=== PATIENT | male | born 1945 | race Caucasian/White ===

== ENCOUNTER 2024-07-23 13:13 | Inpatient (IN) | payer MEDICARE, OTHER ==
[2024-07-23] MEDS ORDERED: Polyethylene Glycol 3350 Powder 17 GM Packet PO PRN (16:40)
[2024-07-23] MEDS ORDERED: Non-Formulary Medication 1 Each (Insulin Aspart [Novolog] 100 UNIT/ML Vial) SUBCUT SCH (16:43)
[2024-07-23] MEDS: Acetaminophen 500 MG Tab PO PRN (17:41)
[2024-07-23] MEDS: Insulin Lispro 100 Units/ML 3 ML Vial SUBCUT SCH (17:43)
[2024-07-23] MEDS: Insulin Glarg,Human.Rec.Analog 100 Unit/ML 10 ML Vial SUBCUT SCH (21:37)
[2024-07-23] MEDS: Heparin Sodium 100 Units/ML 3 ML Syringe IVPUSH SCH (21:40)
[2024-07-23] MEDS: Cefepime 2 GM Vial IV SCH (21:45)
[2024-07-23] MEDS: metFORMIN 500 MG Tab PO SCH (22:23)
[2024-07-24 07:22] LABS: INR 1.3 (0.9-1.1); PROTHROMBIN TIME 13.5 SEC (9.6-12.0)
[2024-07-24] MEDS: Aspirin 81 MG Tab.EC PO SCH (08:26)
[2024-07-24] MEDS: Cholecalciferol (Vitamin D3) 25 MCG Tab PO SCH (08:26)
[2024-07-24] MEDS: Lisinopril 20 MG Tab PO SCH (08:27)
[2024-07-24] MEDS: Ascorbic Acid 500 MG Tab PO SCH (08:28)
[2024-07-24] MEDS: Zinc Sulfate 220 MG Cap PO SCH (08:29)
[2024-07-24] MEDS: Cyanocobalamin (Vitamin B12) 250 MCG Tab PO SCH (08:29)
[2024-07-24] MEDS: amLODIPine 10 MG Tab PO SCH (08:29)
[2024-07-24] MEDS: Metoprolol Succinate 50 MG Tab.ER PO SCH (08:30)
[2024-07-24] MEDS: Ferrous Sulfate 325 MG Tab PO SCH (08:39)
[2024-07-24] MEDS: Sodium Chloride 0.9% 10 ML Syringe IV SCH (08:52)
[2024-07-24] MEDS ORDERED: Non-Formulary Medication 1 Each (Benazepril [Lotensin] 20 MG Tablet) PO SCH (09:00)
[2024-07-24] MEDS: Warfarin 2.5 MG, Warfarin 5 MG PO SCH (11:57)
[2024-07-24] MEDS: FLU (Fluad Triv) TS24-25 (65UP)/MF59C/PF 45 MCG/0.5 ML Syringe IM ONE (11:59)
[2024-07-24] MEDS ORDERED: Non-Formulary Medication 1 Each (Warfarin 7.5 MG Tablet) PO SCH (16:40)
[2024-07-24] MEDS: Acetaminophen 500 MG Tab PO SCH (20:03)
[2024-07-25] MEDS: Warfarin 5 MG Tab PO SCH (09:15)
[2024-07-25] MEDS ORDERED: oxyCODONE 5 MG Tab PO PRN (11:04)
[2024-07-25] MEDS ORDERED: Warfarin 5 MG Tab PO SCH (16:45)
[2024-07-25] MEDS: Insulin Glarg,Human.Rec.Analog 100 Unit/ML 10 ML Vial SUBCUT ONE (21:12)
[2024-07-26] MEDS: oxyCODONE 5 MG Tab PO PRN (07:42)
[2024-07-26] MEDS: Sennosides/Docusate Sodium 50-8.6 MG Tab PO PRN (07:43)
[2024-07-26] MEDS: Insulin Glarg,Human.Rec.Analog 100 Unit/ML 10 ML Vial SUBCUT SCH (08:34)
[2024-07-28 07:15] LABS: CREATININE 1.4 mg/dL (0.70-1.30); EST CRCL DRUG DOSING (CG) 45.63 mL/min
[2024-07-28 07:19] LABS: BASOPHILS ABSOLUTE AUTO 0.1 x10^3/uL (0.0-0.2); BASOPHILS PERCENT AUTO 0.5 % (0.2-1.2); EOSINOPHILS PERCENT AUTO 9.5 % (0.0-4.0); HEMATOCRIT 35.1 % (40.0-52.0); HEMOGLOBIN 11.5 g/dL (14.0-18.0); IMMATURE GRAN ABSOLUTE AUTO 0.05 x10^3/uL (0.00-0.07); LYMPHOCYTES PERCENT AUTO 17.8 % (25.0-50.0); MEAN CORPUSCULAR HEMOGLOBIN 25.5 pg (26.0-32.0); MEAN CORPUSCULAR HGB CONC 32.8 g/dL (32.0-36.0); MEAN CORPUSCULAR VOLUME 77.8 fL (78.0-93.0); MONOCYTES ABSOLUTE AUTO 1.1 x10^3/uL (0.0-0.8); MONOCYTES PERCENT AUTO 9.7 % (2.0-11.0); NEUTROPHILS ABSOLUTE AUTO 6.8 x10^3/uL (1.8-7.7); PLATELET COUNT,PLT 254 x10^3/uL (130-400); RED BLOOD CELL COUNT 4.51 x10^6/uL (4.5-6.0)
[2024-07-28 07:27] LABS: INR 2.3 (0.9-1.1); PROTHROMBIN TIME 23.6 SEC (9.6-12.0)
[2024-07-31] MEDS: traMADol 50 MG Tab PO PRN ×2 (03:05→22:31)
[2024-07-31 10:42] LABS: INR 2.1 (0.9-1.1); PROTHROMBIN TIME 21.9 SEC (9.6-12.0)
[2024-07-31] MEDS: Acetaminophen 500 MG Tab PO SCH (18:11)
[2024-08-01] MEDS ORDERED: Insulin Glarg,Human.Rec.Analog 100 Unit/ML 10 ML Vial SUBCUT SCH (09:00)
[2024-08-01] MEDS: Insulin Glarg,Human.Rec.Analog 100 Unit/ML 10 ML Vial SUBCUT SCH (09:14)
[2024-08-01] MEDS: Insulin Lispro 100 Units/ML 3 ML Vial SUBCUT SCH ×2 (10:39→17:37)
[2024-08-01] MEDS ORDERED: Insulin Lispro 100 Units/ML 3 ML Vial SUBCUT SCH (12:00)
[2024-08-02] MEDS: Insulin Regular, Human 100 Units/ML 10 ML Vial SUBCUT SCH (06:27)
[2024-08-03] MEDS ORDERED: oxyCODONE 5 MG Tab PO PRN (22:30)
[2024-08-04 07:45] LABS: CREATININE 1.6 mg/dL (0.70-1.30); EST CRCL DRUG DOSING (CG) 39.92 mL/min
[2024-08-04 07:46] LABS: INR 2.4 (0.9-1.1); PROTHROMBIN TIME 25.1 SEC (9.6-12.0)
[2024-08-04 07:47] LABS: BASOPHILS ABSOLUTE AUTO 0.1 x10^3/uL (0.0-0.2); BASOPHILS PERCENT AUTO 0.5 % (0.2-1.2); EOSINOPHILS PERCENT AUTO 9.5 % (0.0-4.0); HEMATOCRIT 34.1 % (40.0-52.0); HEMOGLOBIN 11.3 g/dL (14.0-18.0); IMMATURE GRAN ABSOLUTE AUTO 0.07 x10^3/uL (0.00-0.07); LYMPHOCYTES ABSOLUTE AUTO 1.6 x10^3/uL (1.0-4.8); LYMPHOCYTES PERCENT AUTO 14.7 % (25.0-50.0); MEAN CORPUSCULAR HEMOGLOBIN 25.6 pg (26.0-32.0); MEAN CORPUSCULAR HGB CONC 33.1 g/dL (32.0-36.0); MEAN CORPUSCULAR VOLUME 77.3 fL (78.0-93.0); MONOCYTES ABSOLUTE AUTO 0.9 x10^3/uL (0.0-0.8); NEUTROPHILS ABSOLUTE AUTO 7.3 x10^3/uL (1.8-7.7); NEUTROPHILS PERCENT AUTO 66.7 % (50.0-80.0); PLATELET COUNT,PLT 266 x10^3/uL (130-400); RED BLOOD CELL COUNT 4.41 x10^6/uL (4.5-6.0)
[2024-08-04] MEDS: traMADol 50 MG Tab PO SCH (09:43)
[2024-08-04] MEDS: Polyethylene Glycol 3350 Powder 17 GM Packet PO SCH (17:23)
[2024-08-04] MEDS: DEXAMETHASONE 2 MG PO SCH (18:26)
[2024-08-04] MEDS: Sennosides/Docusate Sodium 50-8.6 MG Tab PO SCH (21:48)
[2024-08-05] MEDS: oxyCODONE 5 MG Tab PO PRN (08:36)
[2024-08-05] MEDS: Meropenem 1 GM in Sodium Chloride 0.9% 100 ML IV SCH (20:24)
[2024-08-07] MEDS: Insulin Regular, Human 100 Units/ML 10 ML Vial SUBCUT SCH (07:00)
[2024-08-07] MEDS: oxyCODONE 5 MG Tab PO SCH (20:47)
[2024-08-09] MEDS: Ondansetron 4 MG Tab.DIS PO PRN (08:22)
[2024-08-09 08:39] LABS: ANION GAP 12.7 mmol/L (5-15); CREATININE 1.2 mg/dL (0.70-1.30); EST CRCL DRUG DOSING (CG) 53.23 mL/min; POTASSIUM,K 4.7 mmol/L (3.5-5.1)
[2024-08-10] MEDS: Prochlorperazine 5 MG Tab PO PRN (15:33)
[2024-08-11 07:20] LABS: BASOPHILS PERCENT AUTO 0.1 % (0.2-1.2); EOSINOPHILS ABSOLUTE AUTO 0.9 x10^3/uL (0.0-0.5); EOSINOPHILS PERCENT AUTO 6.2 % (0.0-4.0); HEMATOCRIT 34.4 % (40.0-52.0); HEMOGLOBIN 11.3 g/dL (14.0-18.0); IMMATURE GRAN ABSOLUTE AUTO 0.16 x10^3/uL (0.00-0.07); LYMPHOCYTES ABSOLUTE AUTO 0.8 x10^3/uL (1.0-4.8); LYMPHOCYTES PERCENT AUTO 5.7 % (25.0-50.0); MEAN CORPUSCULAR HEMOGLOBIN 25.3 pg (26.0-32.0); MEAN CORPUSCULAR HGB CONC 32.8 g/dL (32.0-36.0); MEAN CORPUSCULAR VOLUME 77.1 fL (78.0-93.0); MONOCYTES ABSOLUTE AUTO 1.1 x10^3/uL (0.0-0.8); MONOCYTES PERCENT AUTO 8.2 % (2.0-11.0); NEUTROPHILS ABSOLUTE AUTO 10.9 x10^3/uL (1.8-7.7); NEUTROPHILS PERCENT AUTO 78.7 % (50.0-80.0); PLATELET COUNT,PLT 302 x10^3/uL (130-400); RED BLOOD CELL COUNT 4.46 x10^6/uL (4.5-6.0); WHITE BLOOD CELL COUNT,WBC 13.9 x10^3/uL (4.0-10.0)
[2024-08-11 07:30] LABS: INR 3.5 (0.9-1.1); PROTHROMBIN TIME 35.2 SEC (9.6-12.0)
[2024-08-11 07:36] LABS: ANION GAP 10.1 mmol/L (5-15); CALCIUM 9.8 mg/dL (8.5-10.1); CREATININE 1.2 mg/dL (0.70-1.30); EST CRCL DRUG DOSING (CG) 53.23 mL/min; POTASSIUM,K 5.1 mmol/L (3.5-5.1)
[2024-08-11] MEDS: oxyCODONE ER 10 MG TAB.ER PO SCH (22:09)
[2024-08-11] MEDS: oxyCODONE ER 20 MG TAB.ER PO SCH (22:16)
[2024-08-12] MEDS ORDERED: Warfarin 2.5 MG, Warfarin 5 MG PO ONE (09:00)
[2024-08-12] MEDS: Warfarin 5 MG Tab PO SCH (12:39)
[2024-08-12] MEDS: oxyCODONE ER 10 MG TAB.ER PO SCH (19:59)
[2024-08-13 07:04] LABS: CALCIUM 9.7 mg/dL (8.5-10.1); CREATININE 1.3 mg/dL (0.70-1.30); EST CRCL DRUG DOSING (CG) 49.13 mL/min; POTASSIUM,K 4.8 mmol/L (3.5-5.1)
[2024-08-13 07:05] LABS: ANION GAP 11.8 mmol/L (5-15); INR 3.2 (0.9-1.1); PROTHROMBIN TIME 32.6 SEC (9.6-12.0)
[2024-08-13] MEDS: oxyCODONE ER 20 MG TAB.ER PO SCH (19:44)
[2024-08-14] MEDS: Warfarin 5 MG Tab PO SCH (10:04)
[2024-08-14] MEDS: Morphine 2 MG/ML SYRINGE IVPUSH PRN (15:56)
[2024-08-15] MEDS ORDERED: Warfarin 2.5 MG, Warfarin 5 MG PO SCH (09:00)
[2024-08-18 07:03] LABS: BASOPHILS ABSOLUTE AUTO 0.1 x10^3/uL (0.0-0.2); BASOPHILS PERCENT AUTO 0.6 % (0.2-1.2); EOSINOPHILS ABSOLUTE AUTO 0.6 x10^3/uL (0.0-0.5); HEMOGLOBIN 11.5 g/dL (14.0-18.0); IMMATURE GRAN ABSOLUTE AUTO 0.06 x10^3/uL (0.00-0.07); LYMPHOCYTES ABSOLUTE AUTO 0.4 x10^3/uL (1.0-4.8); LYMPHOCYTES PERCENT AUTO 4.4 % (25.0-50.0); MEAN CORPUSCULAR HEMOGLOBIN 25.2 pg (26.0-32.0); MEAN CORPUSCULAR HGB CONC 31.9 g/dL (32.0-36.0); MEAN CORPUSCULAR VOLUME 78.8 fL (78.0-93.0); MONOCYTES PERCENT AUTO 10.3 % (2.0-11.0); NEUTROPHILS ABSOLUTE AUTO 7.9 x10^3/uL (1.8-7.7); NEUTROPHILS PERCENT AUTO 78.1 % (50.0-80.0); PLATELET COUNT,PLT 233 x10^3/uL (130-400); RED BLOOD CELL COUNT 4.57 x10^6/uL (4.5-6.0); WHITE BLOOD CELL COUNT,WBC 10.1 x10^3/uL (4.0-10.0)
[2024-08-18 07:10] LABS: INR 2.8 (0.9-1.1); PROTHROMBIN TIME 28.9 SEC (9.6-12.0)
[2024-08-18 07:16] LABS: CALCIUM 10.3 mg/dL (8.5-10.1); CREATININE 1.4 mg/dL (0.70-1.30); EST CRCL DRUG DOSING (CG) 45.63 mL/min; POTASSIUM,K 4.8 mmol/L (3.5-5.1)
[2024-08-18 07:17] LABS: ANION GAP 10.8 mmol/L (5-15)
[2024-08-20] MEDS: Acetaminophen Soln 160 MG/5 ML UD Cup PO SCH (18:38)
[2024-08-22] MEDS: Triamcinolone Acetonide 0.1% Crm 454 GM Jar TOP SCH (21:41)
[2024-08-24] MEDS: Acetaminophen Soln 160 MG/5 ML UD Cup PO PRN (18:02)
[2024-08-25 07:22] LABS: CALCIUM 9.3 mg/dL (8.5-10.1); CREATININE 1.4 mg/dL (0.70-1.30); EST CRCL DRUG DOSING (CG) 45.63 mL/min; POTASSIUM,K 3.9 mmol/L (3.5-5.1)
[2024-08-25 07:23] LABS: ANION GAP 8.9 mmol/L (5-15)
[2024-08-25 07:30] LABS: BASOPHILS PERCENT AUTO 0.4 % (0.2-1.2); EOSINOPHILS PERCENT AUTO 11.6 % (0.0-4.0); HEMATOCRIT 32.7 % (40.0-52.0); HEMOGLOBIN 10.6 g/dL (14.0-18.0); IMMATURE GRAN ABSOLUTE AUTO 0.04 x10^3/uL (0.00-0.07); LYMPHOCYTES ABSOLUTE AUTO 1.3 x10^3/uL (1.0-4.8); LYMPHOCYTES PERCENT AUTO 14.8 % (25.0-50.0); MEAN CORPUSCULAR HEMOGLOBIN 25.1 pg (26.0-32.0); MEAN CORPUSCULAR HGB CONC 32.4 g/dL (32.0-36.0); MEAN CORPUSCULAR VOLUME 77.3 fL (78.0-93.0); MONOCYTES ABSOLUTE AUTO 0.9 x10^3/uL (0.0-0.8); NEUTROPHILS ABSOLUTE AUTO 5.3 x10^3/uL (1.8-7.7); NEUTROPHILS PERCENT AUTO 62.7 % (50.0-80.0); PLATELET COUNT,PLT 279 x10^3/uL (130-400); RED BLOOD CELL COUNT 4.23 x10^6/uL (4.5-6.0); WHITE BLOOD CELL COUNT,WBC 8.5 x10^3/uL (4.0-10.0)
[2024-08-25] MEDS: Triamcinolone Acetonide 0.1% Crm 15 GM Tube TOP SCH (20:51)
[2024-08-26] MEDS ORDERED: Levalbuterol HCl 1.25 MG/3 ML Neb INH PRN (16:37)
[2024-08-28] MEDS: diphenhydrAMINE 25 MG Cap PO PRN (03:14)
[2024-08-28] MEDS: ALPRAZolam 0.25 MG Tab PO PRN (07:45)
[2024-08-28] MEDS ORDERED: Meropenem 1 GM in Sodium Chloride 0.9% 100 ML IV SCH (14:49)
[2024-08-28] MEDS: Meropenem 1 GM in Sodium Chloride 0.9% 100 ML IV SCH (20:39)
[2024-08-29] MEDS ORDERED: [UNRECOGNIZED DRUG - OTHER] PO PRN (11:22)
[2024-08-29] MEDS ORDERED: ACETAMINOPHEN PO PRN (11:22)
[2024-08-29] MEDS: hydrOXYzine HCl 25 MG Tab PO PRN (13:03)
[2024-08-29] MEDS: [UNRECOGNIZED DRUG - OTHER] TOP PRN (13:03)
[2024-08-29] MEDS: Camphor/Menthol 0.5-0.5% Lotion 222 ML Bottle TOP PRN (16:08)
[2024-08-29 18:48] LABS: BASOPHILS PERCENT AUTO 0.4 % (0.2-1.2); EOSINOPHILS PERCENT AUTO 12.2 % (0.0-4.0); HEMATOCRIT 29.2 % (40.0-52.0); HEMOGLOBIN 9.3 g/dL (14.0-18.0); IMMATURE GRAN ABSOLUTE AUTO 0.04 x10^3/uL (0.00-0.07); LYMPHOCYTES ABSOLUTE AUTO 1.4 x10^3/uL (1.0-4.8); LYMPHOCYTES PERCENT AUTO 17.6 % (25.0-50.0); MEAN CORPUSCULAR HEMOGLOBIN 24.7 pg (26.0-32.0); MEAN CORPUSCULAR HGB CONC 31.8 g/dL (32.0-36.0); MEAN CORPUSCULAR VOLUME 77.5 fL (78.0-93.0); MONOCYTES PERCENT AUTO 12.7 % (2.0-11.0); NEUTROPHILS ABSOLUTE AUTO 4.6 x10^3/uL (1.8-7.7); NEUTROPHILS PERCENT AUTO 56.6 % (50.0-80.0); PLATELET COUNT,PLT 339 x10^3/uL (130-400); RED BLOOD CELL COUNT 3.77 x10^6/uL (4.5-6.0); WHITE BLOOD CELL COUNT,WBC 8.1 x10^3/uL (4.0-10.0)
[2024-08-29] MEDS: Insulin Regular, Human 100 Units/ML 10 ML Vial SUBCUT SCH (19:02)
[2024-08-29 19:11] LABS: LACTIC ACID 2.7 mmol/L (0.4-2.0)
[2024-08-29 19:16] LABS: A/G RATIO 0.46; ALBUMIN 1.9 g/dL (3.4-5.0); BILIRUBIN TOTAL 0.5 mg/dL (0.2-1.0); CALCIUM 9.4 mg/dL (8.5-10.1); CREATININE 1.4 mg/dL (0.70-1.30); EST CRCL DRUG DOSING (CG) 45.63 mL/min; POTASSIUM,K 4.4 mmol/L (3.5-5.1)
[2024-08-29 19:20] LABS: ANION GAP 9.4 mmol/L (5-15)
[2024-08-29] MEDS: ACETAMINOPHEN 160 MG/5 ML PO SCH (20:59)
[2024-08-29] MEDS: [UNRECOGNIZED DRUG - OTHER] PO SCH (20:59)
[2024-08-29] MEDS: Sodium Chloride 0.9% 1,000 ML IV SCH (21:04)
[2024-08-30] MEDS: Triamcinolone Acetonide 40 MG/ML 1 ML SDV IM ONE (10:30)
[2024-09-01 08:39] LABS: BASOPHILS PERCENT AUTO 0.4 % (0.2-1.2); EOSINOPHILS ABSOLUTE AUTO 0.4 x10^3/uL (0.0-0.5); EOSINOPHILS PERCENT AUTO 5.6 % (0.0-4.0); HEMATOCRIT 27.3 % (40.0-52.0); HEMOGLOBIN 8.6 g/dL (14.0-18.0); IMMATURE GRAN ABSOLUTE AUTO 0.03 x10^3/uL (0.00-0.07); LYMPHOCYTES ABSOLUTE AUTO 1.1 x10^3/uL (1.0-4.8); LYMPHOCYTES PERCENT AUTO 14.1 % (25.0-50.0); MEAN CORPUSCULAR HEMOGLOBIN 24.6 pg (26.0-32.0); MEAN CORPUSCULAR HGB CONC 31.5 g/dL (32.0-36.0); MEAN CORPUSCULAR VOLUME 78.2 fL (78.0-93.0); MONOCYTES PERCENT AUTO 12.3 % (2.0-11.0); NEUTROPHILS ABSOLUTE AUTO 5.2 x10^3/uL (1.8-7.7); NEUTROPHILS PERCENT AUTO 67.2 % (50.0-80.0); PLATELET COUNT,PLT 299 x10^3/uL (130-400); RED BLOOD CELL COUNT 3.49 x10^6/uL (4.5-6.0); WHITE BLOOD CELL COUNT,WBC 7.8 x10^3/uL (4.0-10.0)
[2024-09-01 08:55] LABS: CREATININE 1.4 mg/dL (0.70-1.30); EST CRCL DRUG DOSING (CG) 45.63 mL/min; POTASSIUM,K 4.5 mmol/L (3.5-5.1)
[2024-09-01 08:56] LABS: ANION GAP 8.5 mmol/L (5-15)
[2024-09-01] MEDS: Meropenem 1 GM SDV ONE (09:05)
[2024-09-02] MEDS ORDERED: Heparin Sodium 100 Units/ML 3 ML Syringe IVPUSH PRN (10:44)
[2024-09-03] MEDS: Heparin Sodium 100 Units/ML 3 ML Syringe IVPUSH SCH (08:27)
[2024-09-04] MEDS: Melatonin 3 MG Tab PO PRN (21:28)
[2024-09-06] MEDS: Polyethylene Glycol 3350 Powder 17 GM Packet PO PRN (13:49)
[2024-09-16] MEDS: [UNRECOGNIZED DRUG - OTHER] PO PRN (08:37)
[2024-09-16] MEDS: ACETAMINOPHEN PO PRN (08:37)
[2024-09-16 10:33] VITALS: BP 111/64; PULSE 95
== END 2024-09-16 10:38 | disposition home health service (06) | DRG 560 ==
LOC: VM.MS 15:41
PROVIDERS: ADMIT Internal Medicine; ATTEND Family Medicine
DX: T84.59XA Infection and inflammatory reaction due to other internal joint prosthesis, initial encounter (principal); E44.0 Moderate protein-calorie malnutrition; T81.31XA Disruption of external operation (surgical) wound, not elsewhere classified, initial encounter; I48.20 Chronic atrial fibrillation, unspecified; E87.1 Hypo-osmolality and hyponatremia; Z66 Do not resuscitate; I25.10 Atherosclerotic heart disease of native coronary artery without angina pectoris; E78.5 Hyperlipidemia, unspecified; E66.9 Obesity, unspecified; M17.10 Unilateral primary osteoarthritis, unspecified knee; E87.5 Hyperkalemia; N18.31 Chronic kidney disease, stage 3a; E11.610 Type 2 diabetes mellitus with diabetic neuropathic arthropathy; I12.9 Hypertensive chronic kidney disease with stage 1 through stage 4 chronic kidney disease, or unspecified chronic kidney disease; E11.22 Type 2 diabetes mellitus with diabetic chronic kidney disease; E83.42 Hypomagnesemia; E83.52 Hypercalcemia; Z79.01 Long term (current) use of anticoagulants; Z88.0 Allergy status to penicillin; Z88.8 Allergy status to other drugs, medicaments and biological substances; Z95.1 Presence of aortocoronary bypass graft; Z87.891 Personal history of nicotine dependence; Z68.28 Body mass index [BMI] 28.0-28.9, adult; Z98.890 Other specified postprocedural states; Z87.81 Personal history of (healed) traumatic fracture
CPT/HCPCS: 36415; 80048; 80053; 82565; 82947; 83605; 84460; 85025; 85610; 87040; 87070; 90653; 97110-GO; 97110-GP; 97116-GP; 97161-GP; 97162-GP; 97165-GO; 97530-GP; 97535-GO; A9270-GY; G0008; G0009; J0692; J1642; J1815-GY; J2185; J2270; J3301; J7030; J8540; Q0164